=== PATIENT | female | born 1990 | race African-American/Black ===

== ENCOUNTER 2018-03-13 08:01 | Emergency (ER) | payer MEDICAID, OTHER ==
[~2018-03-13] VITALS: Ht 167.6 cm; Wt 137.0 kg
[2018-03-13 08:20] VITALS: BP 148/79
== END 2018-03-13 09:28 | disposition home or self-care (01) ==
LOC: ER 08:01
DX: T16.1XXA Foreign body in right ear, initial encounter (principal); X58.XXXA Exposure to other specified factors, initial encounter; Y93.89 Activity, other specified; Y92.89 Other specified places as the place of occurrence of the external cause; Y99.8 Other external cause status
CPT/HCPCS: 99281

== ENCOUNTER 2019-08-07 15:56 | Emergency (ER) | payer OTHER ==
[~2019-08-07] VITALS: Ht 165.1 cm; Wt 128.0 kg
[2019-08-07] MEDS ORDERED: IBUPROFEN 600MG TABLET PO ONE (16:45)
[2019-08-07 17:56] VITALS: BP 159/89
== END 2019-08-07 17:58 | disposition home or self-care (01) ==
LOC: ER 16:06
DX: M79.605 Pain in left leg (principal); E11.9 Type 2 diabetes mellitus without complications; Z98.890 Other specified postprocedural states
CPT/HCPCS: 93971; 99284

== ENCOUNTER 2019-11-30 01:30 | Emergency (ER) | payer OTHER ==
[~2019-11-30] VITALS: Ht 167.6 cm; Wt 110.0 kg
[2019-11-30 02:00] VITALS: BP 151/95
[2019-11-30] MEDS ORDERED: ONDANSETRON HCL 4MG/2ML INJ IV STA (02:00)
[2019-11-30] MEDS ORDERED: SODIUM CHLORIDE 0.9% 1,000 ML IV ONE (02:00)
[2019-11-30] MEDS ORDERED: KETOROLAC 30MG/ML VIAL IV STA (02:00)
[2019-11-30 02:40] LABS: CLARITY URINE CLEAR (CLEAR); COLOR URINE YELLOW (YELLOW); KETONES URINE NEGATIVE (NEGATIVE); LEUKOCYTE ESTERASE URINE NEGATIVE (NEGATIVE); NITRITE URINE NEGATIVE (NEGATIVE); OCCULT BLOOD URINE NEGATIVE (NEGATIVE); PROTEIN URINE NEGATIVE (NEGATIVE); SPECIFIC GRAVITY URINE 1.025 (1.005-1.030); UROBILINOGEN URINE 0.2 E.U./dL (0.2-1.0)
[2019-11-30 03:45] LABS: BASOPHILS % 0.6 % (0.0-2.0); EOSINOPHILS % 2.7 % (0.0-5.0); HEMATOCRIT. 33.9 % (36.0-48.0); HEMOGLOBIN. 11.1 g/dL (12.0-16.0); LYMPHOCYTES % 44.5 % (20.0-50.0); MEAN CORPUSCULAR HEMOGLOBIN 27.3 pg (28.0-32.0); MEAN CORPUSCULAR VOLUME 83.2 fL (81.0-99.0); MEAN PLATELET VOLUME 9.3 fl (7.4-10.4); MONOCYTES % 8.2 % (2.0-8.0); PLATELET 218 x1000/uL (130-400); RED BLOOD CELL COUNT 4.07 mill/uL (4.2-5.4); RED CELL DISTRIBUTION WIDTH 14.7 % (11.6-14.6)
[2019-11-30 03:52] LABS: CHLORIDE 107 mEq/L (98-107)
== END 2019-11-30 04:32 | disposition home or self-care (01) ==
LOC: ER 01:30
DX: R10.31 Right lower quadrant pain (principal); M25.512 Pain in left shoulder; E11.9 Type 2 diabetes mellitus without complications; Z98.890 Other specified postprocedural states
CPT/HCPCS: 36415; 73030; 74176; 80053; 81003; 81025; 83690; 85025; 96361; 96374; 99285; J1885; J2405; J7030

== ENCOUNTER 2020-12-28 17:14 | Emergency (ER) | payer OTHER ==
[~2020-12-28] VITALS: Ht 172.7 cm; Wt 150.0 kg
[2020-12-28] MEDS ORDERED: IBUPROFEN 400MG TABLET PO ONE (20:30)
[2020-12-28] MEDS ORDERED: IBUP-2028 MT (21:16)
[2020-12-28 21:30] VITALS: BP 107/63
== END 2020-12-28 21:32 | disposition home or self-care (01) ==
LOC: ER 17:14
DX: G56.02 Carpal tunnel syndrome, left upper limb (principal); E11.9 Type 2 diabetes mellitus without complications
CPT/HCPCS: 29125; 73130; 81025; 99283

== ENCOUNTER 2021-02-26 00:15 | Emergency (ER) | payer MEDICAID, OTHER ==
[~2021-02-26] VITALS: Ht 167.6 cm; Wt 157.0 kg
[~2021-02-26 00:15] MED LIST: IBUP-2028 MT
[2021-02-26 01:15] VITALS: BP 86/101
== END 2021-02-26 05:08 | disposition left against medical advice (07) ==
LOC: ER 00:15
DX: Z53.21 Procedure and treatment not carried out due to patient leaving prior to being seen by health care provider (principal); R07.89 Other chest pain; R06.02 Shortness of breath
CPT/HCPCS: 93005